=== PATIENT | female | born 1985 ===

== ENCOUNTER 2016-09-04 00:53 | Emergency (ER) | payer OTHER, MEDICAID ==
[2016-09-04 01:03] VITALS: BP 133/67; PULSE 81; RESP 18; TEMP 98; O2SAT 100
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
== END 2016-09-04 02:23 | disposition home or self-care (01) ==
LOC: H.ER 00:53
DX: S09.90XA Unspecified injury of head, initial encounter (principal); S63.611A Unspecified sprain of left index finger, initial encounter; V43.52XA Car driver injured in collision with other type car in traffic accident, initial encounter; Y92.410 Unspecified street and highway as the place of occurrence of the external cause; Z88.0 Allergy status to penicillin